=== PATIENT | male | born 1960 | race Caucasian/White ===

== ENCOUNTER 2023-09-09 18:01 | Emergency (ER) | payer OTHER ==
[2023-09-09] MEDS ORDERED: Aspirin Chewable 81 MG TAB ONE (18:24)
[2023-09-09] MEDS ORDERED: Nitroglycerin 0.4 MG TAB 1 EACH ONE (18:24)
[2023-09-09 18:42] LABS: #Basophils 0.1 thou/uL (0.0-0.2); #Lymphocytes 1.4 thou/uL (1.20-3.40); #Monocytes 0.7 thou/uL (0.11-0.59); #Neutrophils 9.2 thou/uL (1.40-6.50); %Basophils 0.7 % (0.0-1.0); %Eosinophils 0.1 % (0.0-10.0); %Lymphocytes 12.4 % (21.0-51.0); %Neutrophils 80.7 % (42.0-75.0); Hematocrit 45.5 % (42.0-52.0); Mean Corpuscular HGB CONC 32.8 g/dL (32.0-36.0); Mean Corpuscular Hemoglobin 31.3 pg (27.0-31.0); Mean Corpuscular Volume 95.3 fl (78.0-98.0); Mean Platelet Volume 6.5 fL (7.4-10.4); Platelet Count 220 10x3/uL (130-400); RBC Distribution Width 13.1 % (11.5-14.5); Red Blood Cell (RBC) Count 4.78 mill/uL (4.70-6.10); White Blood Cell (WBC) Count 11.4 10x3/uL (4.8-10.8)
[2023-09-09 18:56] LABS: ALT (SGPT) 23 U/L (8-55); AST (SGOT) 26 U/L (5-34); Albumin 4.6 g/dL (3.4-4.8); Alkaline Phosphatase 61 U/L (40-110); Anion Gap 17 mmol/L (10-20); BUN (Urea Nitrogen) 24 mg/dL (8.4-25.7); Bilirubin, Total 0.3 mg/dL (0.2-1.2); Calc. Creatinine Clearance 0 mL/min (70-130); Calcium 9.4 mg/dL (7.8-10.44); Carbon Dioxide 23 mmol/L (23-31); Chloride 105 mmol/L (98-107); Estimated GFR 64; Glucose 120 mg/dL (80-115); Potassium 4.1 mmol/L (3.5-5.1); Protein, Total 7.6 g/dL (5.8-8.1); Sodium 141 mmol/L (136-145)
[2023-09-09] MEDS ORDERED: Mag-Al Plus 1200/1200/120 MG (30 mL) UDCUP ONE (18:58)
[2023-09-09] MEDS ORDERED: Lidocaine 2% Viscous 100 ML BOTTLE ONE (18:58)
[2023-09-09 19:06] LABS: Critical Call Chem Troponin I EMS.CLJ@1905; Troponin I 0.305 ng/mL (< 0.028)
[2023-09-09] MEDS ORDERED: Morphine 4 MG/ML VIAL ONE (19:08)
[2023-09-09] MEDS ORDERED: Heparin 25,000 units/D5W 500 ML ONE (19:19)
[2023-09-09] MEDS ORDERED: Heparin 10,000 UNITS/ 10 ML VIAL ONE (19:19)
[2023-09-09 19:39] LABS: INR-International Normal Ratio 0.9; Prothrombin Time 12.8 sec (12.0-14.7)
[2023-09-09 19:40] LABS: PTT 21.6 sec (22.9-36.1)
== END 2023-09-09 19:55 | disposition short-term general hospital (02) ==
LOC: MADERS 18:01
DX: I21.4 Non-ST elevation (NSTEMI) myocardial infarction (principal); I48.91 Unspecified atrial fibrillation; F17.220 Nicotine dependence, chewing tobacco, uncomplicated
CPT/HCPCS: 71045; 80053; 83735; 83880; 84484; 85025; 85379; 85610; 85730; 93005; 96365; 96375; J1644; J2270